=== PATIENT | female | born 1970 | race Hispanic/Latino ===

== ENCOUNTER 2018-10-10 10:00 | Emergency (ER) | payer BC, OTHER ==
--- NOTE | 2018-10-10 10:42 | RAD REPORT ---
EXAM DESCRIPTION: RAD - Chest Single View - 10/10/2018 10:37 am CLINICAL HISTORY: CHEST PAIN Chest pain. COMPARISON: No comparisons FINDINGS: Portable technique limits examination quality. The lungs are grossly clear. The heart is normal in size. No displaced fractures. IMPRESSION: No acute intrathoracic process suspected.
[2018-10-10 10:46] LABS: Absolute Lymphocytes (CBC) 1.8 K/uL (0.7-4.9); Absolute Monocytes 0.4 K/uL (0.1-1.3); Basophils % 0.8 % (0-1.3); Eosinophils % 1.9 % (0-4.4); Hematocrit 35.9 % (36.0-45.0); Lymphocytes % 34.4 % (15.3-44.8); MCH 30.5 pg (27.0-35.0); MCV 87.6 fL (80-100); MPV 9.5 fL (7.6-11.3); Monocytes % 6.6 % (3.3-12.3)
[2018-10-10 10:58] LABS: Protime INR 1.06
[2018-10-10 11:13] LABS: ALT/SGPT 20 U/L (12-78); AST/SGOT 14 U/L (15-37); Albumin 3.5 g/dL (3.4-5.0); Alkaline Phosphatase 50 U/L (45-117); BUN Blood Urea Nitrogen 16 mg/dL (7-18); Bicarbonate 23 mmol/L (21-32); Bilirubin Direct < 0.1 mg/dL (0-0.2); Bilirubin Total 0.4 mg/dL (0.2-1.0); Glucose Level 83 mg/dL (74-106); Lipase 156 U/L (73-393); Magnesium 1.8 mg/dL (1.8-2.4); NT PRO-BNP 49 pg/mL (<125); Potassium 3.7 mmol/L (3.5-5.1); Sodium Level 138 mmol/L (136-145); Troponin (Emerg Dept Use Only) < 0.02 ng/mL (0.0-0.045)
--- NOTE | 2018-10-10 11:28 | EKG ---
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
--- NOTE | 2018-10-10 13:32 | RAD REPORT ---
EXAM DESCRIPTION: CT - Chest For Pe Angio - 10/10/2018 12:55 pm CLINICAL HISTORY: Chest pain, shortness of breath COMPARISON: Chest films same date TECHNIQUE: Dynamically enhanced 3 mm thick images of the chest were obtained during administration o f approximately 150mL Isovue 370 IV contrast. Coronal and oblique MIP reconstruction images were gene rated and reviewed. Exam utilizes a protocol to evaluate the pulmonary arterial tree. All CT scans are performed using dose optimization technique as appropriate and may include automated exposure control or mA/KV adjustment according to patient size. FINDINGS: No pulmonary emboli are identified. The aorta as imaged shows no acute or suspicious finding. No pericardial thickening or effusion. No infiltrate or mass in the lung parenchyma. No pleural effusion or pleural thickening. No mediastinal or hilar suspicious masses. No chest wall masses or abnormal axillary lymphadenopathy. IMPRESSION: No pulmonary emboli identified. No other significant or suspicious findings.
--- NOTE | 2018-10-10 13:53 | ER ---
Nurse's Notes [facility] Name: Roya Gallegos Age: 47 yrs Sex: Female : 1970 Arrival Date: 10/10/2018 Time: 10:04 Bed 5 Private MD: None, None Diagnosis: Chest pain, unspecified Presentation: 10/10 10:08 Presenting complaint: Patient states: I woke up this morning with a very sharp pain in la1 my chest and upper abdomen, it feels like indigestion but I wanted to come get checked out. Transition of care: patient was not received from another setting of care. Onset of symptoms was October 10, 2018. Risk Assessment: Do you want to hurt yourself or someone else? Patient reports no desire to harm self or others. Initial Sepsis Screen: Does the patient meet any 2 criteria? No. Patient's initial sepsis screen is negative. Does the patient have a suspected source of infection? No. Patient's initial sepsis screen is negative. Care prior to arrival: None. 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 - Social history:: Smoking status: Patient/guardian denies using tobacco. - Ebola Screening: : No symptoms or risks identified at this time. Screenin:45 Abuse screen: Denies threats or abuse. Denies injuries from another. Nutritional ph screening: No deficits noted. Tuberculosis screening: No symptoms or risk factors identified. Fall Risk None identified. Assessment: 10:42 General: Appears in no apparent distress. comfortable, well groomed, Behavior is calm, ph cooperative, appropriate for age, Denies fever, feeling ill. Pain: Complains of pain in xyphoid area and epigastric area Pain radiates to back Quality of pain is described as pressure. Neuro: Level of Consciousness is awake, alert, obeys commands, Oriented to person, place, time, situation, Denies weakness dizziness, headache. Cardiovascular: Reports chest pain, Denies lightheadedness, nausea, shortness of breath, Capillary refill < 3 seconds in bilateral fingers Patient's skin is warm and dry. Respiratory: Airway is patent Respiratory effort is even, unlabored, Respiratory pattern is regular, symmetrical. GI: Abdomen is non-distended, Bowel sounds present X 4 quads. Abd is soft and non tender X 4 quads. Reports epigastric pain, indigestion, Patient currently denies diarrhea, nausea, vomiting. Derm: Skin is intact, is healthy with good turgor, Skin is pink, warm \T\ dry. Musculoskeletal: Circulation, motion, and sensation intact. Range of motion: intact in all extremities. 12:00 Reassessment: Patient appears in no apparent distress at this time. Patient and/or ph family updated on plan of care and expected duration. Pain level reassessed. Patient is alert, oriented x 3, equal unlabored respirations, skin warm/dry/pink. Pt resting quietly, VSS, awaiting lab results. 13:00 Reassessment: Patient appears in no apparent distress at this time. Patient and/or ph family updated on plan of care and expected duration. Pain level reassessed. Patient is alert, oriented x 3, equal unlabored respirations, skin warm/dry/pink. Pt resting quietly, rates pain 2/10 at this time, awaiting repeat cardiac enzymes. 14:13 Reassessment: Patient appears in no apparent distress at this time. Patient and/or iw family updated on plan of care and expected duration. Pain level reassessed. Patient is alert, oriented x 3, equal unlabored respirations, skin warm/dry/pink. Vital Signs: 10:10 BP 138 / 94; Pulse 81; Resp 16; Temp 97.5; Pulse Ox 98% on R/A; Weight 65.77 kg; Height la1 5 ft. 4 in. (162.56 cm); 10:46 BP 124 / 72; Pulse 76; Resp 18; Pulse Ox 100% ; sv 10:46 BP 124 / 72; Pulse 81; Resp 18; Pulse Ox 100% on R/A; ph 11:57 BP 110 / 67; Pulse 79; Resp 17; Pulse Ox 98% ; jb1 13:00 BP 118 / 71; Pulse 80; Resp 18; Pulse Ox 98% on R/A; ph 14:00 BP 114 / 68; Pulse 76; Resp 16; Temp 97.8; Pulse Ox 99% on R/A; ph 10:10 Body Mass Index 24.89 (65.77 kg, 162.56 cm) la1 ED Course: 10:04 Patient arrived in ED. sb2 10:04 None, None is Private Physician. sb2 10:09 Triage completed. la1 10:11 Dario Avalos PA is PHCP. jmm 10:11 Kartik Samayoa MD is Attending Physician. jm 10:11 Isabelle Frances, RN is Primary Nurse. ph 10:11 Arm band placed on right wrist. la1 10:26 EKG done, by color technician. reviewed by Dario SUTTON. at1 10:30 Initial lab(s) drawn, by me, sent to lab. Inserted saline lock: 20 gauge in right ph antecubital area, using aseptic technique. Blood collected. 10:37 X-ray completed. Portable x-ray completed in exam room. Patient tolerated procedure jb2 well. 10:38 XRAY Chest (1 view) In Process Unspecified. EDMS 10:45 Patient has correct armband on for positive identification. Placed in gown. Bed in low ph position. Call light in reach. Side rails up X 1. ripsaw grader on. Pulse ox on. NIBP on. Warm blanket given. 12:56 CT Chest For PE Angio In Process Unspecified. EDMS 13:52 Tera Martin MD is Referral Physician. [facility] 14:13 No provider procedures requiring assistance completed. IV discontinued, intact, iw bleeding controlled, No redness/swelling at site. Pressure dressing applied. Administered Medications: No medications were administered Outcome: 13:52 Discharge ordered by . [facility] 14:12 Discharge instructions given to patient, Instructed on discharge instructions, follow iw up and referral plans. Demonstrated understanding of instructions, follow-up care. 14:13 Discharged to home ambulatory, with family. iw 14:13 Condition: good 14:20 Patient left the ED. la1 Signatures: Dispatcher [employer] EDMS Nuno Olsen jb1 Shirley Richards, RN RN Dario Avalos PA PA jmm Buechter, Jesse jb2 Alisa Godoy RN RN iw Chanda Vasquez, underground mine machinery mechanic EKG Tat1 George Meade RN RN la1 Isabelle Frances, RN RN ph Unique Harrison sb2
--- NOTE | 2018-10-10 13:53 | EDPHYS ---
Physician Documentation [facility] Name: Roya Gallegos Age: 47 yrs Sex: Female : 1970 Arrival Date: 10/10/2018 Time: 10:04 Bed 5 Private MD: None, None ED Physician Kartik Samayoa HPI: 10/10 10:21 This 47 yrs old Female presents to ER via Ambulatory with complaints of jmm Abdominal Pain, Chest Pain. 10:21 The patient presents with abdominal pain in the epigastric area. Onset: The jmm symptoms/episode began/occurred this morning. The symptoms do not radiate. Associated signs and symptoms: Pertinent positives: chest pain. The symptoms are described as burning, sharp. Modifying factors: The symptoms are alleviated by nothing, the symptoms are aggravated by leaning foward. This is a 47 year old female with a history of hypothyroidism that presents to the ED with chest pain beginning after reaching for an object earlier this morning. Patient localizes the pain to the sternum. Pain does no radiates and is exacerbated by leaning forward. Also complains of a burning sensation to the epigastric region. Denies tobacco or recreational drug use. Denies family history of CAD. . 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 - Social history:: Smoking status: Patient/guardian denies using tobacco. - Ebola Screening: : No symptoms or risks identified at this time. ROS: 10:21 Constitutional: Negative for fever, chills, and weight loss. jmm 10:21 Cardiovascular: Positive for chest pain. 10:21 Abdomen/GI: Positive for abdominal pain. 10:21 All other systems are negative. Exam: 10:21 Constitutional: This is a well developed, well nourished patient who is awake, alert, jmm and in no acute distress. Head/Face: atraumatic. Eyes: EOMI, no conjunctival erythema appreciated ENT: Moist Mucus Membranes Neck: Trachea midline, Supple Chest/axilla: Normal chest wall appearance and motion. 10:21 Cardiovascular: Rate: normal, Rhythm: regular, Pulses: no pulse deficits are appreciated. 10:21 Respiratory: the patient does not display signs of respiratory distress, Respirations: normal, Breath sounds: are clear throughout. 10:21 Abdomen/GI: Inspection: abdomen appears normal, Bowel sounds: normal, Palpation: soft, mild abdominal tenderness, in the epigastric area, Indicators: McBurney's point is not tender, Ch[place]'s sign is negative. 10:21 Back: ROM is normal. 10:21 Musculoskeletal/extremity: ROM: intact in all extremities. 10:21 Skin: Appearance: Color: normal in color. 10:21 Neuro: Orientation: is normal, Mentation: is normal, Memory: is normal. 10:21 Psych: Behavior/mood is pleasant, cooperative. Vital Signs: 10:10 BP 138 / 94; Pulse 81; Resp 16; Temp 97.5; Pulse Ox 98% on R/A; Weight 65.77 kg; Height la1 5 ft. 4 in. (162.56 cm); 10:46 BP 124 / 72; Pulse 76; Resp 18; Pulse Ox 100% ; sv 10:46 BP 124 / 72; Pulse 81; Resp 18; Pulse Ox 100% on R/A; ph 11:57 BP 110 / 67; Pulse 79; Resp 17; Pulse Ox 98% ; jb1 13:00 BP 118 / 71; Pulse 80; Resp 18; Pulse Ox 98% on R/A; ph 14:00 BP 114 / 68; Pulse 76; Resp 16; Temp 97.8; Pulse Ox 99% on R/A; ph 10:10 Body Mass Index 24.89 (65.77 kg, 162.56 cm) la1 MDM: 10:20 Patient medically screened. [facility] 13:50 Data reviewed: vital signs, nurses notes. Data interpreted: Pulse oximetry: on room air jm is 98 %. Interpretation: normal. Counseling: I had a detailed discussion with the patient and/or guardian regarding: the historical points, exam findings, and any diagnostic results supporting the discharge/admit diagnosis, lab results, radiology results, the need for outpatient follow up, to return to the emergency department if symptoms worsen or persist or if there are any questions or concerns that arise at home. 13:50 ED course: Heart score = 0, cardiac enzymes and eks negative. advised to follow up with [facility] cardiology. given return precautions. patient understood and agrees with the plan of care. . 10/10 10:25 Order name: Basic Metabolic Panel; Complete Time: 11:16 [facility] 10/10 10:25 Order name: CBC with Diff; Complete Time: 11:05 [facility] 10/10 10:25 Order name: LFT's; Complete Time: 11:16 [facility] 10/10 10:25 Order name: Magnesium; Complete Time: 11:16 [facility] 10/10 10:25 Order name: NT PRO-BNP; Complete Time: 11:16 [facility] 10/10 10:25 Order name: PT-INR; Complete Time: 11:05 [facility] 10/10 10:12 Order name: EKG; Complete Time: 10:13 la1 10/10 10:25 Order name: Troponin (emerg Dept Use Only); Complete Time: 11:16 [facility] 10/10 10:25 Order name: XRAY Chest (1 view); Complete Time: 10:50 [facility] 10/10 10:25 Order name: EKG; Complete Time: 10:26 [facility] 10/10 10:25 Order name: Lipase; Complete Time: 11:16 [facility] 10/10 11:38 Order name: D-Dimer; Complete Time: 12:17 [facility] 10/10 12:11 Order name: CT Chest For PE Angio; Complete Time: 13:36 [facility] 10/10 12:16 Order name: Troponin (emerg Dept Use Only); Complete Time: 13:36 [facility] 10/10 10:12 Order name: EKG - Nurse/Tech; Complete Time: 10:24 la1 10/10 10:25 Order name: Cardiac monitoring; Complete Time: 10:41 [facility] 10/10 10:25 Order name: IV Saline Lock; Complete Time: 10:42 [facility] 10/10 10:25 Order name: Labs collected and sent; Complete Time: 10:42 [facility] 10/10 10:25 Order name: O2 Per Protocol; Complete Time: 10:42 [facility] 10/10 10:25 Order name: O2 Sat Monitoring; Complete Time: 10:42 [facility] 10/10 11:14 Order name: Urine Dipstick-Ancillary (obtain specimen); Complete Time: 14:15 [facility] 10/10 12:16 Order name: EKG - Nurse/Tech; Complete Time: 14:15 jmm Administered Medications: No medications were administered Disposition: 18:00 Co-signature as Attending Physician, Kartik Samayoa MD. rn Disposition: 10/10/18 13:52 Discharged to Home. Impression: Chest pain, unspecified. - Condition is Stable. - Discharge Instructions: Nonspecific Chest Pain. - Medication Reconciliation Form, Thank You Letter, Antibiotic Education, Prescription Opioid Use form. - Follow up: Tera Martin MD; When: 2 - 3 days; Reason: Recheck today's complaints, Continuance of care, Re-evaluation by your physician. Signatures: Dispatcher [employer] EDMS Dario Avalos, HERMAN PA Kartik North MD MD rn George Meade RN RN la1 Corrections: (The following items were deleted from the chart) 14:20 13:52 10/10/2018 13:52 Discharged to Home. Impression: Chest pain, unspecified. la1 Condition is Stable. Forms are Medication Reconciliation Form, Thank You Letter, Antibiotic Education, Prescription Opioid Use. Follow up: Tera Martin; When: 2 - 3 days; Reason: Recheck today's complaints, Continuance of care, Re-evaluation by your physician. [facility]
== END 2018-10-10 14:20 | disposition home or self-care (01) ==
LOC: ER 10:00
DX: R07.9 Chest pain, unspecified (principal)
CPT/HCPCS: 36415; 71045; 71275; 80048; 80076; 83690; 83735; 83880; 84484; 85025; 85379; 85610; 93005; 99284; Q9967